=== PATIENT | female | born 1940 | race Caucasian/White ===

== ENCOUNTER → 2018-08-13 12:21 | Outpatient (CLI) | payer MEDICARE, OTHER, SELFPAY ==
--- NOTE | 2018-08-13 | DI.MRI.S_ITS ---
PROCEDURE: MR KNEE RT WO CON INDICATIONS: UNILATERAL PRIMARY OSTEOARTHRITIS OF RIGHT KNEE TECHNIQUE: Noncontrast sagittal PD fast spin echo and T2 fast spin echo with fat saturation, sagittal 3-D FLASH with fat saturation; coronal T1 spin echo and PD fast spin echo with fat saturation, and axial PD fast spin echo with fat saturation through the knee. COMPARISON: [facility], CR, XR KNEE ARTHRITIC SERIES BI, 06/16/2018, 10:20. FINDINGS: Image quality: Excellent. Menisci: Medial extrusion and attachment of the medial meniscus is present. Amorphous high signal intensity within the anterior horn, body, and posterior horn of the lateral meniscus is present, demonstrating superior and inferior articular surface extension, indicating severe degenerative tearing. Radial tearing of the posterior horn medial meniscus is present. Amorphous high signal intensity within the anterior horn lateral meniscus is present, demonstrating inferior to the surface extension, indicating degenerative tearing. Cruciate ligaments: The posterior cruciate ligament is intact. There is moderate signal loss involving the anterior cruciate ligament. Medial structures: The medial collateral ligament appears intact. Mild T2 signal elevation within the tibial insertion of the semimembranosus. Visualized portions of the pes anserinus tendons appear normal. No abnormal bursal fluid. Lateral structures: The lateral collateral ligament demonstrate mild T2 signal elevation at its femoral insertion site. The long and short heads of the biceps femoris tendon appear intact. The popliteus tendon appears normal. Iliotibial band appears normal. Anterior structures: The quadriceps and patellar tendons appear intact. Moderate lateral patellar subluxation. No femoral trochlear dysplasia or ventral trochlear prominence. There is mild edema in the superolateral aspect of the infrapatellar fat pad. Moderate prepatellar subcutaneous edema. Bones and cartilage: No bone marrow contusions or fractures. Severe tricompartmental periarticular osteophyte formation. Severe diffuse articular cartilage loss overlies the weightbearing aspects of the medial femoral condyle and medial tibial plateau. There is mild ill-defined underline degenerative marrow edema within the weightbearing aspects of the medial femoral condyle and medial tibial plateau. Severe articular cartilage loss overlies the patellar apex, lateral patellar facet, a and lateral femoral trochlea. Moderate marrow edema and intraosseous ganglia within the subchondral aspects of the lateral patellar facet and lateral femoral trochlea. Joint space: There is a small knee joint effusion and a trace Rosario's cyst. There are a few small intra-articular loose bodies, largest of which is in the mid anterior compartment measuring 11 mm. Normal appearing synovial plicae are incidentally noted. IMPRESSION: 1. Tricompartmental osteoarthritis with associated articular cartilage loss. 2. Findings consistent with lateral patellofemoral friction syndrome in a perfect clinical setting, with associated patellofemoral compartment cartilage loss. 3. Partial thickness anterior cruciate ligament tear. 4. Medial and lateral meniscal tearing. 5. Insertional tendinitis of the semimembranosus. 6. Partial-thickness lateral collateral ligament tear. 7. Prepatellar bursitis. Dictated by: Yanick Lema M.D. on 08/13/2018 at 14:51 Approved by: Yanick Lema M.D. on 08/13/2018 at 14:57
== END ==
PROVIDERS: Family Provider Family Medicine; PCP Family Medicine; Visit Provider Orthopaedic Surgery
DX: S83.511A Sprain of anterior cruciate ligament of right knee, initial encounter (principal); S83.421A Sprain of lateral collateral ligament of right knee, initial encounter; M17.11 Unilateral primary osteoarthritis, right knee; M23.241 Derangement of anterior horn of lateral meniscus due to old tear or injury, right knee; M23.251 Derangement of posterior horn of lateral meniscus due to old tear or injury, right knee; M23.221 Derangement of posterior horn of medial meniscus due to old tear or injury, right knee; M76.891 Other specified enthesopathies of right lower limb, excluding foot; M70.41 Prepatellar bursitis, right knee
CPT/HCPCS: 73721

== ENCOUNTER → 2018-09-03 14:42 | Outpatient (CLI) | payer MEDICARE, OTHER, SELFPAY ==
--- NOTE | 2018-09-03 | DI.ECHO.S_ITS ---
[facility] +---------+ : : [address] : : : : [id number] : : : : Phone: [phone]+ Echocardiogram Report + + :Name: GM AMADOR Study Date: 09/03/2018 Height: 62 in : :[facility] Weight: 219 lb : : Gender: Female BSA: 2.0 m2 : :: 1940 Age: 78 yrs BP: 152/82 mmHg: :Reason For Study: Murmur : : Performed By: Edie Davila : :Referring: DIYA JONAS : + + Interpretation Summary 1) Normal left ventricular thickness, size, wall motion, and systolic function (EF 60-65%). 2) Grossly, normal right ventricular size and function. 3) Aortic valve has mild sclerosis but no stenosis is present. Mild aortic regurgitation present. 4) No prior echo available for comparison. Procedure: A two-dimensional transthoracic echocardiogram with color flow and Doppler was performed. The study quality was technically adequate. There is no prior echocardiogram noted for this patient. The patient was in normal sinus rhythm during the exam. Left Ventricle: The left ventricle is normal in size, wall thickness, and systolic function without any focal wall motion abnormalities. The ejection fraction is estimated to be 60-65%. Diastolic parameters suggest probable normal left ventricular diastolic function and normal filling pressures. Right Ventricle: The right ventricle grossly appears normal in size with probable normal systolic function. Atria: The left atrium is mildly dilated. Right atrial size is normal. The interatrial septum is intact with no evidence for an atrial septal defect. Mitral Valve: The mitral valve is grossly normal. There is no mitral regurgitation noted. Aortic Valve: The aortic valve opens well. The aortic valve is trileaflet. There is mild aortic valve sclerosis. There is no aortic valve stenosis. There is mild aortic regurgitation. Tricuspid Valve: The tricuspid valve is normal in structure and function. There is a trace or physiologic amount of tricuspid regurgitation. The right ventricular systolic pressure is estimated to be at least 23 mmHg based on an estimated right atrial pressure of 3 mm Hg. Pulmonic Valve: The pulmonic valve is not well visualized. There is trace pulmonic regurgitation. Great Vessels: The aortic root is normal size. The ascending aorta is at the upper limits of normal in size. The IVC is of normal diameter and collapses greater than 50% with a sniff. This suggests a low right atrial pressure of 3 mm Hg. Pericardium/ Pleura There is no pericardial effusion. There is no pleural effusion. MMode/2D Measurements & Calculations LVIDd: 4.5 cm Ao root diam: 3.4 cm LVIDs: 2.5 cm Aortic Jxn: 3.0 cm FS: 44.0 % asc Aorta Diam: 3.8 cm EPSS: 0.47 cm Ao Arch Diam (Prox Trans): 2.8 cm IVSd: 0.76 cm LVPWd: 0.87 cm LV cruz. diameter/BSA (cm/m^2): 2.3 LV sys. diameter/BSA (cm/m^2): 1.3 LA dimension: 3.6 cm RA long axis: 4.7 cm LA A2 area: 19.6 cm2 RA area: 16.1 cm2 LA A4 area: 20.9 cm2 RA vol: 47.4 ml LA length (vol): 5.3 cm RA : 23.9 ml/m2 LA vol: 65.2 ml IVC diam: 1.8 cm LA vol index: 32.8 ml/m2 RVDd major: 5.6 cm RVD1 (basal): 3.3 cm RVD2 (mid): 2.4 cm Doppler Measurements & Calculations Ao V2 max: 218.7 cm/sec AI P1/2t: 522.7 msec Ao V2 mean: 140.2 cm/sec AI dec slope: 261.4 cm/sec2 Ao max P.1 mmHg Ao mean P.2 mmHg Ao V2 VTI: 44.3 cm MV E max spencer: 95.2 cm/sec TR max spencer: 225.3 cm/sec MV A max spencer: 96.0 cm/sec TR max P.3 mmHg MV E/A: 0.99 PA V2 max: 110.3 cm/sec Med Peak E' Spencer: 7.6 cm/sec PA V2 mean: 71.2 cm/sec E/E' med: 12.6 PA mean P.5 mmHg Lat Peak E' Spencer: 9.4 cm/sec PA Accel Time: 0.08 sec E/E' lat: 10.2 E/e' average: 11.4 MV dec time: 0.23 sec Reading Physician:06:25 PM
== END ==
PROVIDERS: PCP Family Medicine; Visit Provider Family Medicine
DX: I35.1 Nonrheumatic aortic (valve) insufficiency (principal); R01.1 Cardiac murmur, unspecified
CPT/HCPCS: 93306

== ENCOUNTER 2018-09-28 06:06 | Inpatient (IN) | payer MEDICARE, OTHER, SELFPAY ==
[2018-09-15 10:00] VITALS: BMI 40.4
[2018-09-28] VITALS (15 sets, daily range): BP systolic 87–133; BP diastolic 46–67; PULSE 62–78; RESP 14–20; TEMP 36.3–37.3; O2SAT 92–98; BMI 40.4
--- NOTE | 2018-09-28 06:00 | DI.RAD.S_ITS ---
PROCEDURE: XR KNEE RT 1TO2V INDICATIONS: Postop right total knee TECHNIQUE: 2 view(s) of the knee acquired. COMPARISON: [facility], , KNEE 1-2 VIEWS LEFT, 10/20/2012, 12:37. FINDINGS: Bones: Patient is status post knee joint arthroplasty. Hardware components are in expected positions. Visualized bony structures are intact. Soft tissues: Overlying postoperative changes are noted. IMPRESSION: Normal alignment after right total knee arthroplasty. A surgical drain overlies the operative bed. Dictated by: Jamin Vazquez M.D. on 09/28/2018 at 10:59 Approved by: Jamin Vazquez M.D. on 09/28/2018 at 11:00
[2018-09-28] MEDS: LACTATED RINGERS 1,000 ML 42 ML IV (07:00)
[2018-09-28] MEDS: VANCOMYCIN 1,000 MG/200 ML FROZ.PIGGY 200 MG IV (07:05)
[2018-09-28] MEDS: PREGABALIN 75 MG CAPSULE PO (07:08)
[2018-09-28] MEDS: ACETAMINOPHEN 325 MG TABLET 975 MG PO ×3 (07:08→21:35)
[2018-09-28] MEDS: CELECOXIB 200 MG CAPSULE PO (07:08)
--- NOTE | 2018-09-28 07:09 | PC.NURSE ---
Day shift: Not on this AC unit at this time.
--- NOTE | 2018-09-28 07:47 | PM.PREOP ---
Pre-operative Note Interval Note History & Physical reviewed/Exam performed by Physician: Yes Changes to H&P: No
--- NOTE | 2018-09-28 07:48 | PM.OP.1 ---
Operative Date/Time/Diagnoses Date of procedure: 09/28/18 Time of procedure: 07:48 Pre-op diagnosis: right knee OA Post-op diagnosis: same Procedure & Clinicians Procedure: right total knee replacement Same procedure as scheduled: Yes Indications: The patient has had progressively worsening right knee pain with radiographic changes consistent with arthritis. Non-operative management has failed and the patient has requested total knee replacement. The risks, benefits and alternatives to surgery were discussed with the patient prior to proceeding. Risks discussed included, but were not limited to, failure to relieve pain, stiffness, infection, nerve damage, deep venous thrombosis, pulmonary embolism, stroke, coma, heart attack, permanent paralysis and , as well as the potential need for eventual revision of the prosthetic. Surgeon: Padmiin Shirley Applications Support Engineer: Carlyn Casanova Anesthesia Type: Spinal Operative Notes Findings: Severe right knee osteoarthritis, good stability Closure Type: primary Specimen(s): none sent Implants & Drains: Shirley and Nephew Nelsonney BCS2 size 5 femur, size 4 tibia, +9 poly, 32 by 7.5 patella Applied: drain(s) Estimated Blood Loss (mL): 250 Blood products transfused: none Tourniquet time (min): 81 Procedure in detail: The patient was seen in the pre-operative area, where the patient identified the right knee as the operative site and this was marked with my initials. The patient received pre-operative antibiotics, and was taken to the operating room and placed on the operative table in the supine position. After satisfactory anesthesia, a realtime reporter out was performed. The right leg was encircled with a tourniquet about the proximal thigh, and the leg was prepared from the toes to the tourniquet with ChloroPrep in the usual fashion and draped through sterile drapes. The leg was elevated and exsanguinated with Eschmark bandage and the tourniquet inflated to [250] mmHg pressure. The knee was approached through an approximately 18 cm incision centered over the patella and carried into the knee through a medial parapatellar arthrotomy. A portion of the medial and lateral meniscus was resected. Soft tissue was carefully mobilized around the patella the patella was measured with a caliper. Bone was resected from the patella and the patellar height was reconstituted with up an appropriate sized patellar component. A cover was then placed on the patella. A small amount of additional medial and lateral meniscus was resected. The visionare guide fit well to the distal femur. It looked like an appropriate distal femoral cut and the cut was made without difficulty. The rotation was assessed and the appropriate size femoral guide was placed on the distal femur and finishing cuts were made. There was no evidence of notching. The anterior, posterior and chamfer cuts were then made. The posterior osteophytes and soft tissues were then removed. The posterior capsule was injected with part of a mixture of 60 ml 0.25% Marcaine mixed with 20 ml Exparel for post operative pain control. The remainder of this mixture was injected into the capsule and subcutaneous tissues during cement curing. The tibia was prepared and the visionaire guide fit well to the distal tibia. The rotation was assessed. The patient was placed in extension residual medial and lateral meniscus as well as any residual bone was carefully resected. [No] additional tibia was resected. Hemostasis was achieved especially posteriorly. Additional local was injected into the posterior capsule. The extension gap was assessed and additional releases for gap balancing were performed as necessary. It was checked with the gap sales representative printing. The femoral component was trial was placed and the notch was finished. Trial tibial and femoral components were then placed and the knee placed through a range of motion. Range of motion was [0-130], with good stability throughout the range. The trials were then removed, and the tibia was finished. The bone was prepared with pulsatile lavage, and dried with a sponge. Cement was applied and the final prosthetics placed. Excess cement was removed during and after cement curing. A brief Betadine soak was performed. After confirming there was no extruded cement posteriorly, the final tibial insert was placed. The knee was copiously irrigated and the tourniquet deflated. Hemostasis was obtained with the bovie. A drain was placed and brought out superolaterally. The capsule was closed with interrupted suture. The subcutaneous layer was closed with barbed sutures, and the skin with a running 3-0 V-Lock suture and Surgical glue. An Aquacel Ag dressing was applied and the patient was taken to recovery having tolerated the procedure well. Complications: none Condition: stable Disposition: Acute Care Plan for aftercare: The patient will be maintained on a standard total knee replacement protocol with weight bearing as tolerated. The patient will receive Lovenox and sequential compression devices for DVT prophylaxis. The patient will be discharged home when safe for the home environment.
[2018-09-28] MEDS: CEFAZOLIN 2 GM/100 ML FROZ.PIGGY IV ×3 (07:52→23:37)
--- NOTE | 2018-09-28 08:25 | SUR.OPER ---
Supine on padded OR bed. Pillow under head, arms secured on padded armboards <90 degree abduction. Safety belt across torso. Non-operative leg secured with tape over blanket over lower leg. Operative leg secured in DeMayo positioner. Foam padded brace at thigh of operative leg.
[2018-09-28] MEDS: BUPIVACAINE LIPOSOME 266 MG/20 ML VIAL INJ (08:31)
[2018-09-28] MEDS: BUPIVACAINE 0.25% W/ EPI VIAL 50 ML INJ (08:31)
[2018-09-28] MEDS: POVIDONE-IODINE 15 ML, SODIUM CHLORIDE 0.9% 250 ML TOP (09:51)
[2018-09-28] MEDS: LACTATED RINGERS 1,000 ML 125 ML IV ×2 (11:37→20:17)
--- NOTE | 2018-09-28 12:24 | PC.NURSE ---
Day shift: Arrived on unit at approx 1145 from PACU. Oriented to room and call light. Denies pain or nausea. Agrees to not get OOB w/o help from staff. Tolerating PO liquids. Spouse in room for support. Call light in reach.
--- NOTE | 2018-09-28 13:55 | PT.IIE ---
Current Diagnoses Unilateral primary osteoarthritis, right knee (09/28/18) Surgery Performed Operation Date: 09/28/18 07:45 Actual Procedures p Total Knee Arthroplasty(Right) - Padmini Shirley MD Surgical History (Last Updated 09/15/18 @ 10:11 by Arline Shrestha RN) H/O dilation and curettage (Acute) History of arthroplasty of left knee (Acute ~10/2012) Medical History (Last Updated 09/15/18 @ 10:11 by Arline Shrestha RN) Easy bruisability (Acute) HTN (hypertension) (Acute) Hyperlipidemia (Acute) Osteoarthritis (Acute) Physical Therapy Inpatient Evaluation/Re-Eval M1 PT/OT-IP Prior Functional Status Start: 09/28/18 14:57 Freq: NEEDED Status: Active Protocol: Document 09/28/18 13:55 AB (Rec: 09/28/18 15:11 AB [id number]) Medical Review Prior Functional Status Medical History Reviewed Yes Communication able to make needs known Mobility and Gait stated that she is indpeendent with all mobilities and ambulation without AD but occasionally furniture cruises . Social History Household Members spouse Living Arrangements House Number of Floors (Floors) 3 or More Floors Number of Stairs To Enter/Railing? pt has 2 steps to enter from the front door without rails; from the garage 2 steps without rails; has not steps to get to rec room level where pt plans to stay mainly but is ~ 40-50 ft away from the garage. pt prefers to get in through the front door. if entering from the front door, pt has 5 steps down to rec room level without rails but stated that she has kirkpatrick on bother sides. Home Environment High Toilet Walk in Shower Home Equipment Front Wheel Walker Straight Cane Shower Seat with Backrest Hand Held Shower Employment Status Retired M2 PT-IP Current Condition Start: 09/28/18 14:57 Freq: NEEDED Status: Active Protocol: Document 09/28/18 13:55 AB (Rec: 09/28/18 15:11 AB [id number]) Physical Therapy Current Condition Current Condition Evaluation Date 09/28/18 Treatment Diagnosis s/p R TKA; difficulty in walking Onset Date 09/28/18 Weight Bearing Status Weight Bearing Status Weight Bear as Tolerated M3 PT-IP Subjective Start: 09/28/18 14:57 Freq: NEEDED Status: Active Protocol: Document 09/28/18 13:55 AB (Rec: 09/28/18 15:11 AB [id number]) Subjective Physical Therapy Visit Type Type Initial Evaluation Visit Start Time 13:55 Visit Stop Time 14:40 Total Visit Minutes 45 Number of WINE BLENDER Visits 0 Physical Therapy Visit Comments Patient Comments pt agreeable to do PT Therapy Pain Assessment Pain Present Pain Present Denied Pain M4 PT-IP Mobility and Gait Start: 09/28/18 14:57 Freq: NEEDED Status: Active Protocol: Document 09/28/18 13:55 AB (Rec: 09/28/18 15:11 AB [id number]) PT-Bed Mobility Assessment Supine to Sit Supine to Sit Standby Assistance Sit to Supine Sit to Supine Standby Assistance Scooting Scooting Up and Down in Bed Standby Assistance PT-Transfer Assessment Equipment Transfer Assistive Device Gait Belt Front Wheeled Walker Orthotic/Prosthetic Devices or Brace: No Transfers Transfer Destination Toilet Transfer Technique pt ambulated to the toilet using FWW Transfer Ability Level of Assist Contact Guard Assistance Comments Mobility Comments pt ambulated to the toilet using FWW CGA ~ 12 ft. completed sit to stand using grab bars from the toilet min A and cues and ambulated back to bed as requested. Gait Assessment Gait Gait Assistance Required: Contact Guard Assist Distance (Feet) 12 Able to Maintain Weight Bearing Status Yes During Gait Assistive Devices Assistive Device Gait Belt Front Wheeled Walker Orthotic/Prosthetic Devices or Brace: No Gait Deviations General Gait Pattern Antalgic Decreased Stride Length Decreased Feet Clearance Factors Limiting Gait Function Factors Limiting Gait Function Decreased Activity Tolerance Decreased Strength Limited Range of Motion Pain Poor Balance Comments Gait Comments pt ambulated to the toilet ~ 12ft using FWW CGA and back to bed ~1 2 ft again CGA using FWW. PT-Balance Assessment Sitting Balance and Reactions Static Sitting Balance Ability Good Dynamic Sitting Balance Ability Good Standing Balance and Reactions Static Standing Balance Ability Fair Dynamic Standing Balance Ability Fair Device Used FWW M5 PT-IP Objective Assessments Start: 09/28/18 14:57 Freq: NEEDED Status: Active Protocol: Document 09/28/18 13:55 AB (Rec: 09/28/18 15:11 AB [id number]) Orientation Orientation/Cognition Level of Alertness Alert Orientation Name Age Birthday Month Date Year Day of Week Place Situation Safety Awareness Understands Safety Issues Memory Description No Deficits Noted Gross Range of Motion Lower Extremity ROM Assessment Right Impaired Strength Lower Extremity Strength Assessment Right Impaired Knee 3+/5 Sensation Assessment Sensation Gross Sensation WNL Muscle Tone Muscle Tone WNL Yes M6 PT-IP Treatment Start: 09/28/18 14:57 Freq: NEEDED Status: Active Protocol: Document 09/28/18 13:55 AB (Rec: 09/28/18 15:11 AB [id number]) Physical Therapy Treatment Education Education Provided Precautions Weight Bearing Status Post-Op Packet Safety M7 PT-IP Assessment and Plan Start: 09/28/18 14:57 Freq: NEEDED Status: Active Protocol: Document 09/28/18 13:55 AB (Rec: 09/28/18 15:11 AB [id number]) PT Summary Assessment and Plan Potential Rehabilitation Potential Good Status of Condition at Evaluation Stable Summary Impairments Pain ROM Strength Balance Coordination Sensation Bed Mobility Transfers Gait Activity Tolerance Assessment Summary pt requiring CGA with mobility and will likely progress during hospital stay. will complete stair climbing prior to d/c home. pt plans to go home with spouse to assist her and stated that she is set up for outpt PT. Goals Bed Mobility Goal Independent Transfer Goal Independent Front Wheeled Walker Gait Goal Standby Assistance Front Wheel Walker Gait Distance 150 Other Goals up/down 2 steps without rails using FWW/SPC CGA; up/down 5 steps without rails using FWW/SPC CGA Days to Meet Goals 3 Frequency of Treatment Frequency Of Treatment Twice a Day Treatment Plan Physical Therapy Treatment Plan Bed Mobility Training Transfer Training Gait Training Therapeutic Exercise Balance Retraining Post Op Education Discharge Planning Hot or Cold Pack Neuromuscular Re-ed Coordination Retraining Manual Therapy Other Recommendations and Next Treatment ambulation, stair climbing Focus Recommendations To Nursing Amount of Assist Needed 1 Person Assist Discharge Recommendations PT Discharge Recommendations Home with Assistance Outpatient PT
[2018-09-28] MEDS: ASPIRIN EC 81 MG TABLET PO (21:34)
[2018-09-28] MEDS: DOCUSATE 100 MG CAPSULE PO (21:34)
[2018-09-28] MEDS: SIMVASTATIN 20 MG TABLET PO (21:35)
--- NOTE | 2018-09-28 22:37 | PC.NURSE ---
1500- assumed care of pt from outgoing shift. Pt awake and alert. pt states she doesn't feel like she has to void yet. Pt uses call light and cooperates with staff. pt later in the shift felt that she had to void, only went 150 cc. bladder scan showed roughly 530 cc. straight cath completed and about 400 drained. Pt tolerate well. md in to see pt and told her to sit in chair for a bit. pt did. around 930 pt had evening meds and went back to bed. Pt uses call light. bed alarm on. will continue to monitor pt for safety.
--- NOTE | 2018-09-28 23:58 | PC.NURSE ---
Addendum entered by Nyla Abreu R.N. 09/29/18 06:13: Has been up to bathroom several times tonight and voiding without difficulty. Did have some urinary urgency this morning and dribbled while walking to bathroom. CMS remains intact and continues to deny pain. Original Note: Patient is alert and oriented. Breath sounds CTA with RA sat of 95%. HRR. Denies nausea. BT present and passing flatus. Up to bathroom with walker and SBA and able to void 100cc + unmeasured (some of urine missed measuring device); urine is pale yellow. Independent with bed mobility. Dressing/benson to right knee is CDI. Hemovac is compressed and intact with sanguinous drainage noted. CMS + although pulses weak. Denies feeling weak or unsteady when up and has good ROM with right knee. Fall risk score is high and bed alarm is activated; patient refuses to wear a yellow gown. Denies any pain. Wearing bilateral SCD's.
[2018-09-29 05:08] VITALS: BP 135/77; PULSE 67; RESP 18; TEMP 35.7; O2SAT 99
[2018-09-29 06:31] LABS: Hematocrit 37.5 % (36-46); Hemoglobin 12.2 g/dL (12.0-16.0)
--- NOTE | 2018-09-29 07:51 | P.DS_ITS ---
History of Present Illness Date Patient Seen: 09/29/18 Time Patient Seen: 07:47 Chief complaint: right total knee arthroplasty [id number] Narrative: Patient's pain is mild. She has been able to get up and use the restroom several times last night and this morning. Denies fever chills. No nausea vomiting. Patient's is home to assist her. She states she has 2 steps into the front of her house however she could walk around to the back to get and the house without steps. She does feel ready to go home today. Discharge Providers Date of admission: 09/28/18 06:06 Primary care physician: Gio Peraza MD Consults: 09/28/18 06:00 Consult to Anesthesiology Routine Comment: Consulting Provider: Anesthesiologist Reason for consultation: Regional block for post operative pain control 09/28/18 11:02 Consult to Discharge Planning Routine Comment: Consult to Physical Therapy Evaluate & Treat Comment: oob today Physician Instructions: postop TKA protocol Consult to Respiratory Therapy Evaluate & Treat Comment: Physician Instructions: Evaluate and treat Discharge provider: Delfino Garcia PA-C Discharge Date: 09/29/18 Summary Discharge Diagnosis: Status post right total knee arthroplasty Hospital Course: The patient has had progressively worsening right knee pain with radiographic changes consistent with arthritis. Non-operative management has failed and the patient has requested total knee replacement. The risks, benefits and alternatives to surgery were discussed with the patient prior to proceeding. Risks discussed included, but were not limited to, failure to relieve pain, stiffness, infection, nerve damage, deep venous thrombosis, pulmonary embolism, stroke, coma, heart attack, permanent paralysis and , as well as the potential need for eventual revision of the prosthetic. Surgeon: Padmini Shirley Grounds And Nursery Specialist: Carlyn Casanova Anesthesia Type: Spinal Patient taken to the operating room underwent right total knee arthroplasty. Patient back in her room recovering well as in stable condition. Status at Discharge Functional status at discharge: uses cane/walker Overall status at discharge: patient is progressing back to baseline Time Spent with Patient Less than 30 minutes Exam Vital Signs (past 8 hours): - 09/29/18 05:08 Temperature 96.3 F L Pulse Rate 67 Respiratory Rate 18 Blood Pressure 135/77 Pulse Oximetry 99 Oxygen Delivery Method Room Air Oxygen Flow Rate 0 Narrative Exam Narrative: Pleasant 78-year-old female resting comfortably in bed in no apparent distress. Right knee dressing is clean, dry and intact. Hemovac drain is in place. Neurovascular status is intact to the distal right lower extremity. Objective Labs Result Diagrams: 09/29/18 06:06 Labs: Laboratory Results - last 24 hr 09/29/18 06:06 Hgb 12.2 Hct 37.5 Discharge Plan Discharge Plan Patient Disposition: Home Discharge comment: DC home today after PT Discharge Med Rec/Prescriptions Prescriptions: New oxycodone 5 mg Tablet 5 mg PO Q3HR PRN (Reason: Pain, Moderate (4-6)) Qty: 40 RF: 0 hydroxyzine pamoate [Vistaril] 25 mg capsule 25 mg PO QID PRN (Reason: nausea and vomiting) Qty: 30 RF: 0 meloxicam [Mobic] 7.5 mg tablet 7.5 mg PO DAILY Qty: 30 RF: 0 Continue lisinopril 10 MG tablet 10 mg PO QDAY Qty: 0 RF: 0 hydrochlorothiazide 25 MG tablet 25 mg PO QDAY Qty: 0 RF: 0 simvastatin 20 MG tablet 20 mg PO BEDTIME Qty: 0 RF: 0 CA PANTOTHENATE/FOLIC ACID/VIT (MULTIVITAMIN) 1 tab PO QDAY Qty: 0 RF: 0 Vitamin E (VITAMIN E) 400 units PO QDAY Qty: 0 RF: 0 CALCIUM CARBONATE (Calcium) 600 mg PO AMCC Qty: 0 RF: 0 Discontinued aspirin 81 MG tablet,delayed release (DR/EC) 81 mg PO QDAY Qty: 0 RF: 0 Follow up/Referrals: Padmini Shirley MD [Physician] - (follow up 7 days) Provider Discharge Instructions Diet: Diet as Tolerated Activity: WBAT Cold/Heat Therapy: ice as needed Other treatments: Aspirin 81 mg b.i.d., Tylenol 1000 mg Q 8 hr, Mobic 1 tab daily, Vistaril as needed nausea and muscle spasms, oxycodone as needed pain Skin/Wound/Dressing Care Report to your healthcare provider any signs of infection, such as:: chills, fever, increased pain, unusual drainage and unusual redness Dressing: keep dressing clean and dry Discharge Data Primary Care Provider: Gio Peraza Attending Provider: Padmini Shirley Admit Date/Time: 09/28/18 06:06
[2018-09-29] MEDS: OXYCODONE IR 5 MG TABLET PO (08:23)
[2018-09-29] MEDS: ACETAMINOPHEN 325 MG TABLET 975 MG PO (08:24)
[2018-09-29] MEDS: ASPIRIN EC 81 MG TABLET PO (08:24)
[2018-09-29] MEDS: LISINOPRIL 10 MG TABLET PO (08:24)
[2018-09-29] MEDS: DOCUSATE 100 MG CAPSULE PO (08:24)
[2018-09-29] MEDS: hydroCHLOROthiazide 25 MG TABLET PO (08:24)
[2018-09-29 09:00] VITALS: BP 113/61; PULSE 62; RESP 18; TEMP 36.3; O2SAT 98
--- NOTE | 2018-09-29 11:39 | PT.IPTN ---
Current Diagnoses Unilateral primary osteoarthritis, right knee (09/28/18) Surgery Performed Operation Date: 09/28/18 07:45 Actual Procedures p Total Knee Arthroplasty(Right) - Padmini Shirley MD Physical Therapy Treatment Note M2 PT-IP Current Condition Start: 09/28/18 14:57 Freq: NEEDED Status: Active Protocol: Document 09/28/18 13:55 AB (Rec: 09/28/18 15:11 AB [id number]) Physical Therapy Current Condition Current Condition Evaluation Date 09/28/18 Treatment Diagnosis s/p R TKA; difficulty in walking Onset Date 09/28/18 Weight Bearing Status Weight Bearing Status Weight Bear as Tolerated M3 PT-IP Subjective Start: 09/28/18 14:57 Freq: NEEDED Status: Active Protocol: Document 09/29/18 11:30 SA (Rec: 09/29/18 11:39 SA [id number]) Subjective Physical Therapy Visit Type Type Treatment Note Visit Start Time 09:40 Visit Stop Time 10:10 Total Visit Minutes 30 Number of CREPE SOLE WIRE BRUSHER Visits 1 Physical Therapy Visit Comments Patient Comments Pt agreeable to try stairs, rates knee pain as minimial, maybe a 2/10. Therapy Pain Assessment Pain When Pain Assessed During Mobility Pain Present Pain Present Pain Reported Location right knee Intensity 2 Scale Used Numeric (1 - 10) Pain Management Techniques Apply Cold Timing of Activity with Medications M4 PT-IP Mobility and Gait Start: 09/28/18 14:57 Freq: NEEDED Status: Active Protocol: Document 09/29/18 11:30 SA (Rec: 09/29/18 11:39 SA [id number]) PT-Bed Mobility Assessment Rolling Type of Rolling Roll to Right Level of Assist Standby Assistance Supine to Sit Supine to Sit Standby Assistance Sit to Supine Sit to Supine Standby Assistance Scooting Scooting to Edge of Bed Standby Assistance Scooting Up and Down in Bed Standby Assistance PT-Transfer Assessment Sit to and From Stand Sit to and from Stand Standby Assistance Equipment Transfer Assistive Device Gait Belt Front Wheeled Walker Orthotic/Prosthetic Devices or Brace: No Transfers Transfer Destination Chair Toilet Transfer Technique Stand Step Pivot Transfer Ability Level of Assist Standby Assistance Comments Mobility Comments Pt SBA with mobility tasks, demonstrates good safety awareness and safe use of FWW. Reports very limited pain with mobility and demonstrates significant WBing through RLE. Gait Assessment Gait Gait Assistance Required: Contact Guard Assist Distance (Feet) 150 Able to Maintain Weight Bearing Status Yes During Gait Assistive Devices Assistive Device Gait Belt Front Wheeled Walker Orthotic/Prosthetic Devices or Brace: No Gait Deviations General Gait Pattern Antalgic Decreased Stride Length Decreased Feet Clearance Factors Limiting Gait Function Factors Limiting Gait Function Decreased Activity Tolerance Decreased Strength Limited Range of Motion Pain Poor Balance Comments Gait Comments Gait training in halls with FWW and CGA-SBA and min cues for upright posture and, pt taking even step lengths and demonstrates safe use of FWW. Stair Climbing Assessment Evaluation Level of Assist On Stairs Contact Guard Assistance Devices Stair Climbing Assistive Devices Left Railing Right Railing Technique/Endurance Stair Climbing Direction Ascend and Descend Stair Climbing Technique Step to Step Number of Steps Climbed 3 Query Text: Stair Climbing Set # Repetitions (reps) 2 Comments Stair Climbing Comments Pt used B rails for first rep and completed 2nd rep with single rail on L ascending which is her set up at home. PT demonstrated safe ability to ascend/descend stairs with Min verbal cues for technique. M5 PT-IP Objective Assessments Start: 09/28/18 14:57 Freq: NEEDED Status: Active Protocol: Document 09/28/18 13:55 AB (Rec: 09/28/18 15:11 AB [id number]) Orientation Orientation/Cognition Level of Alertness Alert Orientation Name Age Birthday Month Date Year Day of Week Place Situation Safety Awareness Understands Safety Issues Memory Description No Deficits Noted Gross Range of Motion Lower Extremity ROM Assessment Right Impaired Strength Lower Extremity Strength Assessment Right Impaired Knee 3+/5 Sensation Assessment Sensation Gross Sensation WNL Muscle Tone Muscle Tone WNL Yes M6 PT-IP Treatment Start: 09/28/18 14:57 Freq: NEEDED Status: Active Protocol: Document 09/29/18 11:30 SA (Rec: 09/29/18 11:39 SA [id number]) Physical Therapy Treatment Exercises Exercises Ankle Pumps Quad Sets Seated Knee Flexion/Extension Education Education Provided Precautions Weight Bearing Status Post-Op Packet Safety M7 PT-IP Assessment and Plan Start: 09/28/18 14:57 Freq: NEEDED Status: Active Protocol: Document 09/29/18 11:30 SA (Rec: 09/29/18 11:39 SA [id number]) PT Summary Assessment and Plan Potential Rehabilitation Potential Good Status of Condition at Evaluation Stable Summary Progress Towards Goals Progressing Toward Goals Assessment Summary Pt demonstrates safe ambulation with FWW and ability to ascend/descend stairs with CGA and step to gait pattern. Pt has at home to help and plans to cont with OP PT with appointments already set up. Plan to d/c this afternoon. Frequency of Treatment Frequency Of Treatment Twice a Day Recommendations To Nursing Amount of Assist Needed 1 Person Assist Discharge Recommendations PT Discharge Recommendations Home with Assistance Outpatient PT Equipment Needed for Home Before has FWW and SPC Discharge
== END 2018-09-29 11:50 | disposition home or self-care (01) | DRG 470 ==
PROVIDERS: Admitting Provider Orthopaedic Surgery; PCP Family Medicine; Visit Provider Orthopaedic Surgery
PROC: 0SRC0JZ Replacement of Right Knee Joint with Synthetic Substitute, Open Approach (ICD-10-PCS; CPT 27447; principal; 2018-09-28 07:45)
DX: M17.11 Unilateral primary osteoarthritis, right knee (principal); Z96.652 Presence of left artificial knee joint; I10 Essential (primary) hypertension; E78.5 Hyperlipidemia, unspecified; Z87.891 Personal history of nicotine dependence
CPT/HCPCS: 36415; 73560; 85014; 85018; 94762; 97116; 97161; 97530; C1776; C9290; J0690; J1100; J2250; J2274; J2405; J2704; J3010; J3370

== ENCOUNTER → 2020-08-29 12:12 | Outpatient (CLI) | payer MEDICARE, OTHER, SELFPAY ==
[2018-09-28 11:39] VITALS: BMI 40.4
--- NOTE | 2020-08-29 | DI.RAD.S_ITS ---
PROCEDURE: XR SHOULDER RT MIN 2V INDICATIONS: right shoulder pain TECHNIQUE: 3 views of the shoulder were acquired. COMPARISON: None. FINDINGS: Bones: No fractures or dislocations. No suspicious bony lesions. Visualized ribs appear intact. Severe right shoulder joint degeneration. Soft tissues: No suspicious soft tissue calcifications. IMPRESSION: Severe right shoulder joint degeneration Dictated by: Wally Hook M.D. on 08/29/2020 at 13:18 Approved by: Wally Hook M.D. on 08/29/2020 at 13:19
== END ==
PROVIDERS: PCP Family Medicine; Referring Provider Family Medicine; Visit Provider Family Medicine
DX: M25.511 Pain in right shoulder (principal); M19.011 Primary osteoarthritis, right shoulder
CPT/HCPCS: 73030

== ENCOUNTER → 2023-07-10 12:16 | Outpatient (CLI) | payer MEDICARE, OTHER, SELFPAY ==
[2018-09-28 11:39] VITALS: BMI 40.4
--- NOTE | 2023-07-10 | DI.RAD.S_ITS ---
PROCEDURE: XR HIP W PEL IF DONE LT 2V INDICATIONS: PAIN TECHNIQUE: AP pelvis with lateral view(s) of the left hip(s). COMPARISON: None. FINDINGS: Bones: No fractures or dislocations. Moderate degenerative changes of the left hip and mild of the right. Degenerative changes of the visualized lower lumbar spine and pubic symphysis. Pelvic ring appears intact. No suspicious bony lesions. Soft tissues: The visualized bowel gas pattern is normal. No suspicious soft tissue calcifications. IMPRESSION: Moderate degenerative changes of the left hip and mild degenerative changes of the right hip. Dictated by: Timothy Estrada M.D. on 07/10/2023 at 14:20 Approved by: Timothy Estrada M.D. on 07/10/2023 at 14:21
== END ==
PROVIDERS: PCP Family Medicine; Referring Provider Family Medicine; Visit Provider Family Medicine
DX: M25.552 Pain in left hip (principal)
CPT/HCPCS: 73502

== ENCOUNTER → 2024-03-15 10:59 | Outpatient (CLI) | payer MEDICARE, OTHER, SELFPAY ==
[2018-09-28 11:39] VITALS: BMI 40.4
--- NOTE | 2024-03-15 11:03 | DI.RAD.S_ITS ---
PROCEDURE: XR LUMBAR SPINE 2-3V INDICATIONS: Sciatica, left side TECHNIQUE: 3 views of the lumbar spine were acquired. COMPARISON: None. FINDINGS: Bones: 5 [id number] vertebrae are present. There is multilevel trace retrolisthesis as well as trace anterolisthesis of L4 on L5. Moderate to severe disc and foraminal narrowing are present at L5-S1 with scattered areas of moderate disc and foraminal narrowing throughout the visualized lumbar spine. Multilevel anterior osteophytes are present most prominently bridging at T12-L1, L1-L2. Moderate to severe bilateral partially visualized degenerative hip joint space narrowing. No vertebral body compression fractures. No suspicious bony lesions. Soft tissues: Overlying bowel gas pattern is normal. No suspicious soft tissue calcifications. IMPRESSION: Degenerative changes most severe at L5-S1. Dictated by: Ethel Kay M.D. on 03/15/2024 at 14:14 Approved by: Ethel Kay M.D. on 03/15/2024 at 14:15
== END ==
PROVIDERS: PCP Family Medicine; Referring Provider Family Medicine; Visit Provider Family Medicine
DX: M47.817 Spondylosis without myelopathy or radiculopathy, lumbosacral region (principal); M54.32 Sciatica, left side
CPT/HCPCS: 72100

== ENCOUNTER → 2024-07-19 12:30 | Outpatient (CLI) | payer MEDICARE, OTHER, SELFPAY ==
[2018-09-28 11:39] VITALS: BMI 40.4
--- NOTE | 2024-07-19 12:33 | EKG_ITS ---
[facility] [address] [address] Test Date: 2024-07-19 Pat Name: Idalia Cannon Department: [facility] Room: Gender: Female Transfer Table Operator: SAVANNA : 1940 Requested By: Order Number: [id number] Reading MD: Luis Marie MD Measurements Intervals [place] Rate: 65 P: 34 LA: 126 QRS: -3 QRSD: 128 T: -7 QT: 438 QTc: 455 Interpretive Statements Normal sinus rhythm Right bundle branch block (new) Possible Lateral infarct , age undetermined Electronically Signed On 07-19-2024 15:09:06 PST by Luis Marie MD
[2024-07-19 13:32] LABS: Add Manual Diff / Slide Review NO; Basophils Absolute Auto 100 /uL (0-100); Basophils Percent Auto 0.7 % (0-2); Eosinophils Absolute Auto 700 /uL (0-450); Eosinophils Percent Auto 9.3 % (2-4); Hemoglobin 13.3 g/dL (12.0-16.0); Lymphocytes Absolute Auto 1500 /uL (1100-4500); Lymphocytes Percent Auto 19.9 % (25-40); Mean Corpuscular HGB Conc 32.5 % (30-36); Mean Corpuscular Volume 95.4 fL (80-100); Monocytes Absolute Auto 700 /uL (0-900); Monocytes Percent Auto 9.1 % (3-14); Neutrophils Absolute Auto 4700 /uL (1500-7000); Platelet Count 256 X10^3/uL (150-400); Red Cell Distribution Width 14.3 % (11.6-14.8); White Blood Cell Count 7.7 X10^3/uL (4.5-11.0)
[2024-07-19 13:36] LABS: Hemoglobin A1C% w Est Avg Glu 5.4 % (4.0-6.0)
[2024-07-19 14:10] LABS: BUN Creatinine Ratio 18.8 (6-22); Blood Urea Nitrogen 16 mg/dL (7-17); Calcium 9.4 mg/dL (8.4-10.2); Carbon Dioxide 25 mmol/L (22-32); Chloride 108 mmol/L (98-107); Estimated Glomerular Filt Rate > 60 mL/min (>60); Glucose 98 mg/dL (80-110); HEMOLYSIS < 15 (0-50); Potassium 3.9 mmol/L (3.4-5.1); Sodium 139 mmol/L (137-145)
== END ==
PROVIDERS: PCP Family Medicine; Referring Provider Orthopaedic Surgery; Visit Provider Orthopaedic Surgery
DX: Z01.818 Encounter for other preprocedural examination (principal); R73.9 Hyperglycemia, unspecified; Z01.812 Encounter for preprocedural laboratory examination; N39.0 Urinary tract infection, site not specified
CPT/HCPCS: 36415; 80048; 83036; 85025; 93005

== ENCOUNTER → 2024-10-13 14:34 | Outpatient (CLI) | payer MEDICARE, OTHER, SELFPAY ==
[2018-09-28 11:39] VITALS: BMI 40.4
--- NOTE | 2024-10-13 15:36 | EKG_ITS ---
[place] [id number] [place] [id number] Test Date: 2024-10-13 Pat Name: Idalia Cannon Department: [facility] Room: Gender: Female It Director: SAVANNA : 1940 Requested By: Order Number: [id number] Reading MD: Abilio Luciano Measurements Intervals [place] Rate: 76 P: 42 TN: 122 QRS: 11 QRSD: 128 T: 2 QT: 414 QTc: 465 Interpretive Statements Sinus rhythm with premature supraventricular complexes Right bundle branch block T wave abnormality, consider lateral ischemia Electronically Signed On 10-13-2024 20:04:57 PST by Abilio Luciano
[2024-10-13 15:38] LABS: Add Manual Diff / Slide Review NO; Basophils Absolute Auto 100 /uL (0-100); Basophils Percent Auto 0.9 % (0-2); Eosinophils Absolute Auto 300 /uL (0-450); Eosinophils Percent Auto 3.8 % (2-4); Hematocrit 37.3 % (36-46); Hemoglobin 12.5 g/dL (12.0-16.0); Lymphocytes Absolute Auto 1600 /uL (1100-4500); Lymphocytes Percent Auto 22.7 % (25-40); Mean Corpuscular HGB Conc 33.4 % (30-36); Mean Corpuscular Hemoglobin 31.6 PG (26-34); Mean Corpuscular Volume 94.7 fL (80-100); Monocytes Absolute Auto 800 /uL (0-900); Monocytes Percent Auto 11.2 % (3-14); Neutrophils Absolute Auto 4400 /uL (1500-7000); Neutrophils Percent Auto 61.4 % (50-75); Platelet Count 258 X10^3/uL (150-400); Red Blood Cell Count 3.94 X10^6/uL (4.0-5.2); Red Cell Distribution Width 14.7 % (11.6-14.8); White Blood Cell Count 7.2 X10^3/uL (4.5-11.0)
[2024-10-13 15:47] LABS: Appearance Urine UA SL CLOUDY; Bilirubin Urine UA NEGATIVE (NEGATIVE); Color Urine UA YELLOW; Glucose Urine UA NEGATIVE (Negative); Ketones Urine UA NEGATIVE (NEGATIVE); Leukocyte Esterase Urine UA NEGATIVE (NEGATIVE); Nitrite Urine UA NEGATIVE (Negative); Occult Blood Urine UA NEGATIVE (Negative); Protein Urine UA NEGATIVE (Negative); Specific Gravity Urine UA 1.025 (1.000-1.035); Urobilinogen Urine UA 0.2 E.U./dL (0.2)
[2024-10-13 15:49] LABS: pH Urine UA 5.5 (4.5-8.0)
[2024-10-13 15:50] LABS: Alanine Aminotransferase 17 IU/L (<35); Albumin Globulin Ratio 1.4 (1.0-2.8); Alkaline Phosphatase 69 U/L (38-126); Aspartate Aminotransferase 29 IU/L (14-36); BUN Creatinine Ratio 28.6 (6-22); Bilirubin Total 0.4 mg/dL (0.2-1.3); Blood Urea Nitrogen 24 mg/dL (7-17); Calcium 9.3 mg/dL (8.4-10.2); Carbon Dioxide 23 mmol/L (22-32); Chloride 109 mmol/L (98-107); Cholesterol 121 mg/dL (140-199); Estimated Glomerular Filt Rate > 60 mL/min (>60); Globulin 2.8 g/dL (1.7-4.1); Glucose 85 mg/dL (80-110); HDL Cholesterol 47 mg/dL (40-60); HEMOLYSIS < 15 (0-50); LDL Cholesterol Calculated 51 mg/dL (<100); Sodium 138 mmol/L (137-145); Total Protein 6.8 g/dL (6.3-8.2); Triglycerides 117 mg/dL (35-150)
[2024-10-13 15:57] LABS: Hemoglobin A1C% w Est Avg Glu 5.4 % (4.0-6.0)
[2024-10-13 16:05] LABS: Bacteria Urine Occasional (0-1); Culture Indicated Urine Specimen Cultured; RBC Urine None Seen (0-5/HPF); Squamous Epithelial Cell Urine 1-5 /HPF (0-5/HPF); Urine Volume 10mL (spun); WBC Urine 5-10/HPF (0-5/HPF)
[2024-10-13 16:23] LABS: Thyroid Stimulating Hormone 1.72 uIU/mL (0.47-4.68)
[2024-10-13 16:33] LABS: Vitamin D 25 Hydroxy (D3) 46.3 ng/mL (30.0-100.0)
== END ==
PROVIDERS: Orthopaedic Surgery; PCP Family Medicine; Referring Provider Family Medicine; Visit Provider Family Medicine
DX: Z01.818 Encounter for other preprocedural examination (principal); E79.0 Hyperuricemia without signs of inflammatory arthritis and tophaceous disease; E55.9 Vitamin D deficiency, unspecified; Z13.0 Encounter for screening for diseases of the blood and blood-forming organs and certain disorders involving the immune mechanism; Z13.228 Encounter for screening for other metabolic disorders; Z13.220 Encounter for screening for lipoid disorders; Z13.29 Encounter for screening for other suspected endocrine disorder; Z01.812 Encounter for preprocedural laboratory examination; R73.9 Hyperglycemia, unspecified; R94.31 Abnormal electrocardiogram [ECG] [EKG]; N39.0 Urinary tract infection, site not specified
CPT/HCPCS: 36415; 80053; 80061; 81001; 82306; 83036; 84443; 84550; 85025; 87077; 87086; 87147; 93005

== ENCOUNTER 2024-10-25 11:55 | Day surgery (SDC) | payer MEDICARE, OTHER, SELFPAY ==
[2018-09-28 11:39] VITALS: BMI 40.4
[2024-10-12 12:41] VITALS: BMI 36.6
[2024-10-25] VITALS (13 sets, daily range): BP systolic 114–146; BP diastolic 48–77; PULSE 68–86; RESP 12–25; TEMP 36.1–37.2; O2SAT 91–100; BMI 36.6
--- NOTE | 2024-10-25 | DI.RAD.S_ITS ---
PROCEDURE: XR PELVIS 1-2V INDICATIONS: Left total hip athroplasty TECHNIQUE: Intra-operative view of the pelvis and hip acquired. COMPARISON: None. FINDINGS: Bones: Intraoperative devices prior to placement of arthroplasty prostheses are in expected positions. No fractures or suspicious bony lesions. Soft tissues: Overlying surgical retractors are present, along with other intraoperative changes. IMPRESSION: Intraoperative image of pelvis shows left total hip arthroplasty in progress. Dictated by: Niels Wadsworth M.D. on 10/25/2024 at 16:29 Approved by: Niels Wadsworth M.D. on 10/25/2024 at 16:30
--- NOTE | 2024-10-25 06:00 | DI.RAD.S_ITS ---
PROCEDURE: XR HIP W PEL IF DONE LT 2V INDICATIONS: neha TECHNIQUE: AP pelvis and lateral view of the hip acquired. COMPARISON: [facility], [place], XR HIP W PEL IF DONE LT 2V, 07/10/2023, 12:28. FINDINGS: Bones: Patient is status post left hip arthroplasty, with hardware components in expected positions. The hip joint appears congruent. The visualized bony structures appear intact. Soft tissues: Overlying postoperative changes are noted. No suspicious soft tissue densities. IMPRESSION: Expected post-operative appearance of a hip arthroplasty. Dictated by: Ethel Kay M.D. on 10/26/2024 at 12:46 Approved by: Ethel Kay M.D. on 10/26/2024 at 12:46
[2024-10-25] MEDS: CELECOXIB 200 MG CAPSULE PO (12:55)
[2024-10-25] MEDS: LACTATED RINGERS 1,000 ML 42 ML IV ×2 (12:55→16:05)
[2024-10-25] MEDS: VANCOMYCIN 1,000 MG in SODIUM CHLORIDE 0.9% 250 ML 250 MG IV (12:56)
--- NOTE | 2024-10-25 13:21 | PM.PREOP ---
Pre-operative Note Interval Note History & Physical reviewed/Exam performed by Physician: Yes Changes to H&P: No
[2024-10-25] MEDS: TRANEXAMIC ACID 1,000 MG VIAL 2000 MG INJ ×2 (14:02→15:58)
[2024-10-25] MEDS: CEFAZOLIN 2 GM/100 ML PREMIX 100 ML IV ×2 (14:05→21:19)
--- NOTE | 2024-10-25 14:36 | SUR.OPER ---
Lateral on padded OR bed. Gel axillary roll. Arms secured on padded armboard with pillow supporting top arm. Padded hip positioner braces x4 - anterior and posterior chest and pelvis. Additional gel pad used anterior pelvis. Gel pad under bottom leg from knee to foot and secured with tape over sheet.
[2024-10-25] MEDS: BUPIVACAINE 0.25% (PF) 60 ML, EPINEPHrine 0.3 MG INJ (14:40)
[2024-10-25] MEDS: BUPIVACAINE LIPOSOME 266 MG/20 ML VIAL INJ (14:41)
[2024-10-25] MEDS: SODIUM CHLORIDE IRRIG SOLUTION 250 ML, EPINEPHrine 1 MG IRR (14:45)
--- NOTE | 2024-10-25 16:29 | PM.OP.1 ---
Operative Date/Time/Diagnoses Date of procedure: 10/25/24 Time of procedure: 13:40 Pre-op diagnosis: Severe left hip OA Post-op diagnosis: same Procedure & Clinicians Procedure: Left total hip arthroplasty posterior approach Same procedure as scheduled: Yes Indications: The patient has had progressively worsening left hip pain with radiographic changes consistent with arthritis. Non-operative management has failed and the patient has requested total hip replacement. The risks, benefits and alternatives to surgery were discussed with the patient prior to proceeding. Risks discussed included, but were not limited to, failure to relieve pain, leg length discrepancy, dislocation, stiffness, infection, nerve damage, deep venous thrombosis, pulmonary embolism, stroke, coma, heart attack, permanent paralysis and , as well as the potential need for eventual revision of the prosthetic. Surgeon: Padmini Shirley Community Engagement Coordinator: Lexi Coates Anesthesia Type: General and Spinal Operative Notes Findings: Severe left hip OA, adequate stability, soft but adequate bone Closure Type: primary Specimen(s): none sent Prosthetic devices, grafts, tissues, transplants, or devices: Shirley and nephew R3 50 cup, neutral poly liner, 16.5 mm screw, 36 x 50 acetabular liner, Synergy size 12 cemented stem, +0 head, small distal cement restrictor, + 10 cement utilize her Estimated Blood Loss (mL): 250 Blood products transfused: none Procedure in detail: The patient was seen in the pre-operative area, where the patient identified the left hip as the operative site and this was marked with my initials. The patient received pre-operative antibiotics and was taken to the operating room and placed on the operative table in the right lateral decubitus position after satisfactory anesthesia. A multimedia artist out was performed. The left leg was prepared from the ankle to the iliac crest with ChloroPrep in the usual fashion and draped through sterile drapes. A PA was used during the procedure and was essential for intraoperative retraction and safe implantation of the components. The hip was approached through an approximately 20 cm incision centered over the greater trochanter and curving gently posteriorly as it went proximally. This was carried sharply to the fascia rosy, which was divided and retracted with a self retaining retractor. The trochanteric bursa was excised with care being taken to avoid the sciatic nerve, which was identified and protected throughout the case. The short external rotators were incised and the capsulomuscular flap was raised and tagged for later repair. The hip was dislocated, and a femoral neck osteotomy performed approximately 15 mm above the lesser trochanter. Retractors were placed around the femur. The canal was opened with a box cutting osteotome, followed by a T handled reamer and a lateralizing reamer. The canal was reamed for a Synergy stem. The canal was sequentially broached until there was good stability of the broach in the femur. Retractors were placed to expose the acetabulum. The labrum and central soft tissues were removed. Reaming was performed initially going up in 2 mm increments, then 1 mm increments until good bite was obtained with an odd sized reamer. The cup 1 mm larger than the last reamer was then inserted using the appropriate anteversion guides. It was further stabilized with a single screw. A trial neutral liner was placed. The broach was placed in the canal. A trial head and neck were then placed and the hip relocated and checked for leg length and stability. An intraoperative film confirmed the component position and no evidence of fracture. The patient was stable in the position of sleep, of squatting, and could be put through a range of motion with 45 degrees internal rotation without dislocation. At 90 degrees flexion, internal rotation to 70 ? was possible before dislocation. This was felt to be satisfactory and the appropriate components were opened, and the trials were removed. The acetabular liner was impacted into position. The final stem was then impacted into the prepared femoral canal. A brief Betadine soak was performed while trialing with head options. The hip was meticulously irrigated with normal saline. Finally the femoral head was impacted onto the stem. The acetabulum was cleared of all material and the hip relocated one final time. The capsulomuscular flap was then repaired to the greater trochanter though an awl hole using the tag sutures. The short external rotators were repaired with a nonabsorbable suture. A deep drain was placed and brought out anteriorly. The fascia rosy was closed with Vicryl. The subcutaneous layer was closed with barbed sutures and surgical glue. An Aquacel Ag dressing was applied and the patient was taken to recovery having tolerated the procedure well. Complications: none Post-operative Condition: stable Disposition: Acute Care Plan for aftercare: The patient will be maintained on a standard total hip replacement protocol with weight bearing as tolerated and posterior hip precautions. The patient will receive Aspirin and sequential compression devices for DVT prophylaxis. The patient will be discharged home when safe for the home environment.
[2024-10-25] MEDS: DOCUSATE 100 MG CAPSULE PO (21:18)
[2024-10-25] MEDS: ASPIRIN EC 81 MG TABLET PO (21:18)
[2024-10-25] MEDS: ATORVASTATIN 20 MG TABLET 10 MG PO (21:18)
--- NOTE | 2024-10-25 22:54 | PC.NURSE ---
Addendum entered by Jesenia Dobbs R.N. 10/26/24 05:41: Encouraged patient to try getting OOB; pt demured, stating that her leg still feels numb, although says that it feels tender when palpated. Educated on benefits of early mobilization; pt stated she did not feel up to it. Encouraged pt to mobilize with dayshift and reiterated use of IS to prevent infection. Pt resting comfortably, belongings/call light within reach, bed low/locked, bed alarm on, plan of care continues. Original Note: NOC: Discussed benefits of getting OOB w/FWW with pt; pt refused, citing residual numbness in LLE. CMS intact, strength 2+ (can move somewhat but not lift). Pt stated willingness to try OOB in AM. Purewick placed; pt voided 100mL by 2300, will continue to monitor. Pt resting comfortably, belongings/call light within reach, bed low/locked, bed alarm on, plan of care continues.
[2024-10-26] MEDS: LACTATED RINGERS 1,000 ML 100 ML IV (02:27)
[2024-10-26] MEDS: ACETAMINOPHEN 325 MG TABLET 650 MG PO ×2 (02:32→08:42)
[2024-10-26] MEDS: OXYCODONE IR 5 MG TABLET PO ×3 (02:32→14:19)
[2024-10-26 04:45] VITALS: BP 131/60; PULSE 75; RESP 20; TEMP 36.6; O2SAT 94
[2024-10-26] MEDS: CEFAZOLIN 2 GM/100 ML PREMIX 100 ML IV (05:00)
[2024-10-26 07:16] LABS: Hematocrit 35.7 % (36-46); Hemoglobin 11.5 g/dL (12.0-16.0)
--- NOTE | 2024-10-26 07:47 | P.DS_ITS ---
History of Present Illness History of Present Illness Date Patient Seen: 10/26/24 Time Patient Seen: 07:47 Chief complaint: OPB Narrative: The patient has had progressively worsening left hip pain with radiographic changes consistent with arthritis. Non-operative management has failed and the patient has requested total hip replacement. The risks, benefits and alternatives to surgery were discussed with the patient prior to proceeding. Risks discussed included, but were not limited to, failure to relieve pain, leg length discrepancy, dislocation, stiffness, infection, nerve damage, deep venous thrombosis, pulmonary embolism, stroke, coma, heart attack, permanent paralysis and , as well as the potential need for eventual revision of the prosthetic. Discharge Providers Provider Discharge Date: 10/26/24 Primary care physician: Gio Peraza MD Consults: 10/25/24 06:00 Consult to Anesthesiology Routine Comment: Consulting Provider: Anesthesiologist Reason for consultation: Regional block for post operative pain control 10/25/24 17:38 Consult to Discharge Planning Routine Comment: Consult to Occupational Therapy Evaluate & Treat Comment: Physician Instructions: Evaluate and treat Consult to Physical Therapy Evaluate & Treat Comment: Physician Instructions: post op ZAIDA protocol Discharge provider: Ag Valdes PA-C Summary Hospital Course Discharge Diagnosis: Severe left hip OA Hospital Course: Procedure: Left total hip arthroplasty posterior approach Same procedure as scheduled: Yes Anesthesia Type: General and Spinal Operative Notes Findings: Severe left hip OA, adequate stability, soft but adequate bone Closure Type: primary Specimen(s): none sent Prosthetic devices, grafts, tissues, transplants, or devices: Shirley and nephew R3 50 cup, neutral poly liner, 16.5 mm screw, 36 x 50 acetabular liner, Synergy size 12 cemented stem, +0 head, small distal cement restrictor, + 10 cement utilize her Estimated Blood Loss (mL): 250 Blood products transfused: none Status at Discharge Cognitive/behavioral status at discharge: oriented Functional status at discharge: uses cane/walker Overall status at discharge: patient is back to baseline Time Spent with Patient Time spent: Less than 30 minutes Exam Vital Signs (past 8 hours): - 10/26/24 04:45 Temperature 97.8 F Pulse Rate 75 Respiratory Rate 20 Blood Pressure 131/60 Pulse Oximetry 94 Oxygen Delivery Method Room Air Oxygen Flow Rate 0 Narrative Exam Narrative: Patient found resting comfortably in bed. Patient's pain is controlled with oral medication. ?Pain is localized to surgical site. ?Patient declines any new numbness or tingling at the surgical extremity. ?Patient denies any shortness of breath, dizziness, light-headedness, nausea, vomiting, fever or chills. 5/5 strength in hip flexors, quadriceps, hamstrings, DF, PF, EHL bilaterally. Sensation to light touch intact throughout BLE. Calves soft, compressible, nontender. Dressing placed intraoperatively CDI. 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 ? Posterior Hip Pre-cautions. Ambulate and weight bear as tolerated with assistive devices. ? Aspirin 81 mg twice a day for 6 weeks for DVT prevention. ? Baseline pain relief with acetaminophen 500mg every 4 hours as needed and Celebrex 200 mg daily. ?Patient has been prescribed oxycodone 5 mg every 4 ?hours as needed for breakthrough pain. ?Prescribed Zofran 4 mg Q 8 hours prn for postoperative nausea and vomiting. Initiate physical therapy in the next 5-10 days. ? Keep dressing clean and dry. Keep dressing on until first office visit. If dressing becomes dirty or disrupted, replace with appropriate sized dressing. Follow up in clinic in 2 weeks for wound check. Contact clinic if there are any questions or concerns. Discharge Plan Discharge Plan Patient Disposition: Home Provider Discharge Comment: DC pending PT approval Discharge orders & Medications Discharge Orders: Discharge (Order); Ordered 10/26/24 Ordered By: Ag Valdes Prescriptions: New ondansetron 4 mg Tablet,Disintegrating 4 mg PO Q8HR Qty: 10 1RF oxycodone 5 mg Tablet 5 mg PO Q4H PRN (Reason: Pain, Moderate (4-6)) Qty: 40 0RF Continued simvastatin 20 MG tablet 20 mg PO BEDTIME Qty: 0 multivitamin Tablet 1 tab PO DAILY celecoxib [Celebrex] 200 mg Capsule 200 mg PO DAILY acetaminophen 500 mg Tablet 1,000 mg PO TID allopurinol 300 mg Tablet 300 mg PO DAILY Changed aspirin 81 mg Capsule 81 mg PO BID Qty: 90 0RF Discontinued oxycodone 5 mg tablet 5 mg PO Q3HR PRN (Reason: Pain) Follow up/Referrals: Gio Peraza MD [Primary Care Provider] - Padmini Shirley MD [Physician] - 11/04/24 1:00 pm (Follow up w/ JESSY Hernandez, at [facility] office in [place].) Diet/Activity/Treatments Diet: Diet as Tolerated Activity: Weightbearing as tolerated. Posterior hip precautions. Cold/Heat Therapy: Ice to hip as needed for pain. Skin/Wound/Dressing Care Report to your healthcare provider any signs of infection, such as:: chills, fever, night sweats, unusual drainage and unusual redness Dressing: May shower. Leave Aquacel dressing in place until follow up in office. No bathing or otherwise soaking incision. Call the office if the dressing becomes saturated inside. Visit Report/Discharge Packet Instructions: DI for Hip Replacement Stand Alone Forms: Patient Portal/API, Surgery Discharge Discharge Data Primary Care Provider: Gio Peraza Attending Provider: Padmini Shirley Quality VTE Deep Vein Thrombosis/Pulmonary Embolism Present on Admission: No
[2024-10-26 08:00] VITALS: BP 135/58; PULSE 73; RESP 17; TEMP 36.3; O2SAT 96
[2024-10-26] MEDS: ASPIRIN EC 81 MG TABLET PO (08:43)
[2024-10-26] MEDS: CELECOXIB 200 MG CAPSULE PO (08:43)
[2024-10-26] MEDS: MULTIVITAMIN 1 TABLET 1 TAB PO (08:44)
[2024-10-26] MEDS: DOCUSATE 100 MG CAPSULE PO (08:45)
--- NOTE | 2024-10-26 09:55 | PT.IIE ---
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) Medical History (Last Updated 10/12/24 @ 13:32 by Arline Shrestha RN) Easy bruisability Gout History of COVID-19 (~2020) HTN (hypertension) Hyperlipidemia Osteoarthritis Physical Therapy Inpatient Evaluation/Re-Eval M1 PT/OT-IP Prior Functional Status Start: 10/26/24 13:09 Freq: NEEDED Status: Active Protocol: Document 10/26/24 09:55 AB (Rec: 10/26/24 13:21 AB [id number]) Medical Review Prior Functional Status Medical History Reviewed Yes Communication able to make needs known Mobility and Gait pt stated that she was modified independent with all mobilities and ambulation using a FWW Social History Household Members spouse Living Arrangements House Number of Floors (Floors) One Floor Number of Stairs To Enter/Railing? 2 platform steps to enter thouse Home Environment Standard Height Toilet,Walk in Shower Home Equipment Front Wheel Walker,Four Wheel Walker,Raised Toilet Seat Without Armrests,Tub Transfer Bench,Hand Held Shower,Grab Bars In Shower Additional Social History Comment pt stated that spouse will be able to assist some but she is not sure M2 PT-IP Current Condition Start: 10/26/24 13:09 Freq: NEEDED Status: Active Protocol: Document 10/26/24 09:55 AB (Rec: 10/26/24 13:21 AB [id number]) Physical Therapy Current Condition Current Condition Evaluation Date 10/26/24 Treatment Diagnosis s/p L ZAIDA posterior; difficulty in walking Onset Date 10/25/24 M3 PT-IP Subjective Start: 10/26/24 13:09 Freq: NEEDED Status: Active Protocol: Document 10/26/24 09:55 AB (Rec: 10/26/24 13:21 AB [id number]) Subjective Physical Therapy Visit Type Type Initial Evaluation Visit Start Time 09:55 Visit Stop Time 10:35 Number of ENGINEERING DEPARTMENT CHAIR Visits 0 Physical Therapy Visit Comments Patient Comments agreed to do PT Therapy Pain Assessment Pain When Pain Assessed At Rest Pain Present Pain Present Pain Reported Location left hip Intensity 4 Scale Used increases with movement Pain Management Techniques Distraction,Modification of Treatment,Re-positioning, Timing of Activity with Medications M4 PT-IP Mobility and Gait Start: 10/26/24 13:09 Freq: NEEDED Status: Active Protocol: Document 10/26/24 09:55 AB (Rec: 10/26/24 13:21 AB [id number]) PT-Bed Mobility Assessment Supine to Sit Supine to Sit Maximum Assistance PT-Transfer Assessment Sit to and From Stand Sit to and from Stand Moderate Assistance,Maximum Assistance,1 Person Assistance ,Use of Upper Extremities Equipment Transfer Assistive Device Gait Belt,Front Wheeled Walker Orthotic/Prosthetic Devices or Brace: No Transfers Transfer Destination Chair Transfer Ability Level of Assist Moderate Assistance,1 Person Assistance,Use of Upper Extremities Comments Mobility Comments pt in bed and agreeable to do PT. obtained PLOF and home setup. post-op folder provided . educated pt on L hip posterior precautions. pt has difficulty recalling precautions. pt completed supine to sit max A and max cues. able to sit on EOB CGA. completed sit to stand mod A and max cues for precautions. pt ambulated towards the chair using FWW ~ 12 ft mod A and max cues. cued for L quads activation. max A for controlled descent to chair. positioned pt on the chair. informed pt regarding caregiver training this afternoon and stair climbing training. pt stated that she will call her spouse. Left pt with OT. Gait Assessment Gait Gait Assistance Required: Moderate Assistance,1 Person Assist Distance (Feet) 12 Able to Maintain Weight Bearing Status Yes During Gait Assistive Devices Assistive Device Gait Belt,Front Wheeled Walker Orthotic/Prosthetic Devices or Brace: No Gait Deviations General Gait Pattern Antalgic,Decreased Stride Length,Decreased Feet Clearance Factors Limiting Gait Function Factors Limiting Gait Function Decreased Activity Tolerance, Decreased Strength,Difficulty Following Directions,Limited Range of Motion,Pain,Poor Balance,Poor Safety Awareness PT-Balance Assessment Sitting Balance and Reactions Static Sitting Balance Ability Good Dynamic Sitting Balance Ability Fair Standing Balance and Reactions Static Standing Balance Ability Poor Dynamic Standing Balance Ability Poor Device Used FWW M5 PT-IP Objective Assessments Start: 10/26/24 13:09 Freq: NEEDED Status: Active Protocol: Document 10/26/24 09:55 AB (Rec: 10/26/24 13:21 AB [id number]) Orientation Orientation/Cognition Level of Alertness Alert Orientation Name,Place,Situation Language Function Ability Hard of Hearing Safety Awareness Decreased Safety Awareness Memory Description Short Term Impaired Strength Lower Extremity Strength Assessment Left Impaired Hip 3-/5 Knee 3+/5 Muscle Tone Muscle Tone WNL Yes M6 PT-IP Treatment Start: 10/26/24 13:09 Freq: NEEDED Status: Active Protocol: Document 10/26/24 09:55 AB (Rec: 10/26/24 13:21 AB [id number]) Physical Therapy Treatment Education Education Provided Precautions,Weight Bearing Status,Post-Op Packet,Safety M7 PT-IP Assessment and Plan Start: 10/26/24 13:09 Freq: NEEDED Status: Active Protocol: Document 10/26/24 09:55 AB (Rec: 10/26/24 13:21 [id number]) PT Summary Assessment and Plan Potential Rehabilitation Potential Fair Status of Condition at Evaluation Evolving Summary Impairments Pain,ROM,Strength,Balance, Coordination,Sensation,Tone, Cognition,Bed Mobility, Transfers,Gait,Activity Tolerance Assessment Summary pt is an 84 y/o F s/p L ZAIDA posterior approach POD 1. pt has L hip posterior precautions and is WBAT. pt requiring max A for bed mobilty and mod A for transfers and ambulation using FWW and max cues with all tasks for hip precautions. will conduct caregiver training this afternoon as well as stair climbing training. will continue to assess for safe d/c plan. Goals Bed Mobility Goal Standby Assistance Transfer Goal Standby Assistance,Front Wheeled Walker Gait Goal Standby Assistance,Front Wheel Walker Gait Distance 100 Other Goals improve bed mobiltiy , transfers, ambulation using fWW 150 mod i up/down 2 platform steps using FWW CGA Days to Meet Goals 5 Frequency of Treatment Frequency Of Treatment Twice a Day Treatment Plan Physical Therapy Treatment Plan Bed Mobility Training,Transfer Training,Gait Training, Therapeutic Exercise,Balance Retraining,Post Op Education, Discharge Planning,Hot or Cold Pack,Neuromuscular Re-ed, Coordination Retraining,Manual Therapy Precautions Posterior Hip Precautions No Hip Flexion > 90 degrees,No Hip Internal Rotation,No Hip Adduction Weight Bearing Status Weight Bearing Status Weight Bear as Tolerated Allowed Weight Bearing Amount (enter % LLE WBAT or #) (%) Recommendations To Nursing Amount of Assist Needed 1 Person Assist Discharge Recommendations PT Discharge Recommendations Home with / Assist Available,Home Health Transportation Needs at Discharge Private Vehicle,Wheelchair/ Cabulance
--- NOTE | 2024-10-26 10:38 | OT.IP.EVAL ---
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 Mobility and Gait pt stated that she was modified independent with all mobilities and ambulation using a FWW Activities of Daily Living and IADL's Pt states that she is IND in all ADLs except LB dressing and her has been assisting her with all LB dressing for some time d/t pain in the L hip. Social History Household Members spouse Living Arrangements House Number of Floors (Floors) One Floor Number of Stairs To Enter/Railing? 2 platform steps to enter thouse Home Environment Standard Height Toilet,Walk in Shower Home Equipment Front Wheel Walker,Four Wheel Walker,Raised Toilet Seat Without Armrests,Tub Transfer Bench,Hand Held Shower,Grab Bars In Shower Additional Social History Comment pt stated that spouse will be able to assist some but she is not sure M2 OT-IP Current Condition Start: 10/26/24 16:33 Freq: Status: Active Protocol: Document 10/26/24 16:33 CGR (Rec: 10/26/24 16:49 CGR [id number]) Occupational Therapy Current Condition Current Condition Evaluation Date 10/26/24 Treatment Diagnosis L ZAIDA posterior appropach WBAT Diagnosis Onset Date 2/11/25 M3 OT- IP Subjective and Pain Start: 10/26/24 16:33 Freq: Status: Active Protocol: Document 10/26/24 16:33 CGR (Rec: 10/26/24 16:49 CGR [id number]) OT- Subjective Occupational Therapy Visit Type Type Initial Evaluation Visit Start Time 10:00 Visit Stop Time 10:38 Notes Parital co-treat with P.T. M4 OT- IP ADL's Start: 10/26/24 16:33 Freq: Status: Active Protocol: Document 10/26/24 16:33 CGR (Rec: 10/26/24 16:49 CGR [id number]) OT [id number] Comments OT Self-Feeding Comments not meal time OT ADL-Grooming Comments OT Grooming Comments pt declined to perform OT ADL-Oral Care Comments Oral Care Comments pt declined to perform OT ADL-Dressing Comments OT Dressing Comments Pt educated on LB dressing restrictions d/t posterior hip precautions and educated that there are DME available to assist with LB dressing but pt states that she will just continue to get assistance from her . OT ADL-Toileting Comments OT Toileting Comments pt declines need OT ADL-Bathing Comments OT Bathing Comments not peformed M5 OT- IP IADL's Start: 10/26/24 16:33 Freq: Status: Active Protocol: Document 10/26/24 16:33 CGR (Rec: 10/26/24 16:49 CGR [id number]) OT-Instrumental Activities of Daily Living Deficits IADL Deficits Identified No Deficits Home Safety Awareness Awareness of Need for Assistance at Home Good Awareness Ability to Problem Solve Emergency Able to Problem Solve Situations Medication Management Medication Management No Deficits Identified Money Management Money Management No Deficits Identified Meal Preparation Meal Preparation Caregiver Provides Assist Tripe Scraper Tripe Scraper Caregiver Provides Assist Driving Driving Comments Pt's spouse drives M6 OT- IP Functional Cognition Start: 10/26/24 16:33 Freq: Status: Active Protocol: Document 10/26/24 16:33 CGR (Rec: 10/26/24 16:49 CGR [id number]) Cognitive Factors Limiting Selfcare Function Cognitive Ability Level of Alertness Alert Patient Orientation Name,Age,Birthday,Month,Date, Year,Day of Week,Place, Situation Attention Span Ability Capable of Focused Attention, Capable of Sustained Attention Ability to Follow Commands Able to Follow One Step Commands with Increased Time, Able to Follow One Step Commands with Repetition OT- Vision and Hearing OT- Hearing Assessment OT- Hearing Assessment WFL OT- Vision Assessment Visual Acuity WFL Visual Attentiveness WFL Occular Pursuits WFL Visual Convergence WFL M7 OT- IP Mobility and Balance Start: 10/26/24 16:33 Freq: Status: Active Protocol: Document 10/26/24 16:33 CGR (Rec: 10/26/24 16:49 CGR [id number]) OT- Bed Mobility Assessment Supine to Sit Supine to Sit Assist Maximum Assistance,1 Person Assistance Scooting Scooting to Edge of Bed Standby Assistance,1 Person Assistance OT-Transfer Assessment Sit to and From Stand Sit to and from Stand Moderate Assistance,Maximum Assistance,1 Person Assistance Transfers Transfer Ability Moderate Assistance,1 Person Assistance Technique Transfer Destination Bed,Car Transfer Technique Stand Step Pivot Devices Transfer Assistive Devices Gait Belt,Front Wheeled Walker Comments Mobility Comments Pt stood from bed and ambulated around the bed to the chair on the other side. Pt declined going to the bathroom or performing ADLs standing at sink. OT- Balance Assessment Sitting Balance and Reactions Static Sitting Balance Ability Good Dynamic Sitting Balance Ability Good M8 OT- IP Objective Assessments Start: 10/26/24 16:33 Freq: Status: Active Protocol: Document 10/26/24 16:33 CGR (Rec: 10/26/24 16:49 CGR [id number]) OT Gross Range of Motion Upper Extremity Range of Motion Assessment Bilaterally Impaired ROM Impairments B shlds 0-90 d/t arthritic changes OT Strength Upper Extremity Strength Assessment Within Functional Limits Comments Strength Comments grossly 5-/5 OT- Coordination Assessment Upper Extremity Finger to Nose Test Within Functional Limits Finger Tapping Test Within Functional Limits OT Sensation Assessment Edema Edema Absent M9 OT- IP Assessment and Plan Start: 10/26/24 16:33 Freq: Status: Active Protocol: Document 10/26/24 16:33 CGR (Rec: 10/26/24 16:49 CGR [id number]) OT Summary Assessment and Plan Potential Rehabilitation Potential Excellent Analytic Complexity at Evaluation Moderate Summary OT Impairments Pain,Strength,Balance, Functional Mobility,Grooming, Dressing,Toileting,Bathing, Toilet Transfers,Shower Transfers,Activity Tolerance Progress Towards Goals Progressing Toward Goals Assessment Summary Pt presents as a L ZAIDA posterior approach. Pt needing mod to max assist with sit to stand and mod a for ambulation to chair. Pt is likely to progress quickly as this is her first time up. Pt planned for caregiver training in PM as MD has discharge orders in. At this time SNF would be recommended for pt but she is likely to progress quickly and be appropriate for discharge home with husbands support. Goals Grooming Goal Independent Dressing Goal Independent,Foundry Melt Supervisor,Sock Aid Toileting Goal Independent Bathing Goal Independent Toilet Transfer Goal Independent Shower Transfer Goal Independent Frequency of Treatment Other frequency 5x per week Treatment Plan OT Treatment Plan ADL Training,Functional Mobility,Patient/Family Education,Discharge Planning Other Treatment Recommendations and Next up to bathroom, aDLs standing Treatment Focus Discharge Recommendations OT Discharge Recommendations Home with Assistance,SNF Rehab Home Equipment Needs 2ww, LB dressing equipment Transportation Needs at Discharge Private Vehicle
--- NOTE | 2024-10-26 13:35 | PT.IPTN ---
Current Diagnoses Unilateral primary osteoarthritis, left hip (10/25/24) Surgery Performed Operation Date: 10/25/24 13:45 Actual Procedures p Total Hip Arthroplasty(Left) - Padmini Shirley MD Physical Therapy Treatment Note M2 PT-IP Current Condition Start: 10/26/24 13:09 Freq: NEEDED Status: Active Protocol: Document 10/26/24 09:55 AB (Rec: 10/26/24 13:21 AB [id number]) Physical Therapy Current Condition Current Condition Evaluation Date 10/26/24 Treatment Diagnosis s/p L ZADIA posterior; difficulty in walking Onset Date 10/25/24 M3 PT-IP Subjective Start: 10/26/24 13:09 Freq: NEEDED Status: Active Protocol: Document 10/26/24 13:35 AB (Rec: 10/26/24 14:42 AB [id number]) Subjective Physical Therapy Visit Type Type Treatment Note Visit Start Time 13:35 Visit Stop Time 14:30 Number of DIE BARBER Visits 0 Therapy Pain Assessment Pain When Pain Assessed At Rest Pain Present Pain Present Pain Reported Location left hip Intensity 5 Scale Used Numeric (0 - 10) Pain Management Techniques Apply Cold,Distraction, Modification of Treatment,Re- positioning,Timing of Activity with Medications M4 PT-IP Mobility and Gait Start: 10/26/24 13:09 Freq: NEEDED Status: Active Protocol: Document 10/26/24 13:35 AB (Rec: 10/26/24 14:42 AB [id number]) PT-Bed Mobility Assessment Supine to Sit Supine to Sit Maximum Assistance Sit to Supine Sit to Supine Maximum Assistance,1 Person Assistance,2 Person Assistance PT-Transfer Assessment Sit to and From Stand Sit to and from Stand Moderate Assistance,1 Person Assistance,Use of Upper Extremities Equipment Transfer Assistive Device Gait Belt,Front Wheeled Walker Orthotic/Prosthetic Devices or Brace: No Transfers Transfer Destination Bed Transfer Technique ambulated Transfer Ability Level of Assist Moderate Assistance,1 Person Assistance,Use of Upper Extremities Comments Mobility Comments pt sitting on chair and spouse in room. pt unable to recall her precautions. educated pt and spouse regarding posterior hip precautions again. noticed spouse has a hurrycane caregiver training conducted. educated spouse on how to use safety belt and how to assist pt. spouse was able to put safety belt on pt and assisted pt with sit to stand mod A. spouse let go of pt upon standing and pt LOB. PT assisted pt to regain balance. instructed spouse hold on to pt for safety and not let go of the belt. spouse ambulated pt to EOB ~ 12 ft using fWW mod A. asked pt if she has decided to just use the recliner at this time since she is needing max A and might be too much for spouse. pt insisted that spouse will be able to assist. completed sit to supine max A and max cues. PT needed to assist spouse to be able to assist pt elevate LE up in bed. pt completed supiine to sit with spouse assisting max A. stair climbing training: educated pt and spouse on how to do stairs. pt ambulated from EOB to platform step using FWW mod A and cues. pt completed up/down step using fWW mod A and cues. spouse was able to assist pt. pt ambulated back to room using FWW ~ 25 ft mod A (+) LOB again. pt easily distracted and lets go of FWW to reach for bed pad to straighten. educated pt regarding safety and redirected to task at hand . pt ambulated to the chair. positioned pt on the chair. call light and table placed within reach. informed pt and spouse regarding SNF recommendation of if going home, pt will need 24/7 assist and will need additional assistance, w/c , bedside commode and use of town marshal to sleep on. pt wants to go home but spouse is not sure. informed sheryl and onsite case manager. Gait Assessment Gait Gait Assistance Required: Moderate Assistance Distance (Feet) 25 Able to Maintain Weight Bearing Status Yes During Gait Assistive Devices Assistive Device Gait Belt,Front Wheeled Walker Orthotic/Prosthetic Devices or Brace: No Gait Deviations General Gait Pattern Antalgic,Decreased Stride Length,Decreased Feet Clearance Factors Limiting Gait Function Factors Limiting Gait Function Decreased Activity Tolerance, Decreased Strength,Difficulty Following Directions,Limited Range of Motion,Pain,Poor Balance,Poor Safety Awareness M5 PT-IP Objective Assessments Start: 10/26/24 13:09 Freq: NEEDED Status: Active Protocol: Document 10/26/24 09:55 AB (Rec: 10/26/24 13:21 AB [id number]) Orientation Orientation/Cognition Level of Alertness Alert Orientation Name,Place,Situation Language Function Ability Hard of Hearing Safety Awareness Decreased Safety Awareness Memory Description Short Term Impaired Strength Lower Extremity Strength Assessment Left Impaired Hip 3-/5 Knee 3+/5 Muscle Tone Muscle Tone WNL Yes M6 PT-IP Treatment Start: 10/26/24 13:09 Freq: NEEDED Status: Active Protocol: Document 10/26/24 13:35 AB (Rec: 10/26/24 14:42 AB [id number]) Physical Therapy Treatment Education Education Provided Precautions,Safety M7 PT-IP Assessment and Plan Start: 10/26/24 13:09 Freq: NEEDED Status: Active Protocol: Document 10/26/24 13:35 AB (Rec: 10/26/24 14:42 AB [id number]) PT Summary Assessment and Plan Potential Rehabilitation Potential Fair Summary Impairments Pain,ROM,Strength,Balance, Coordination,Sensation,Tone, Cognition,Bed Mobility, Transfers,Gait,Activity Tolerance Progress Towards Goals Slow Progress - Other Assessment Summary caregiver training conducted. pt's spouse uses a hurrycane for ambulation and is also limited ability to assist pt. informed pt and spouse regarding SNF rehab but has not decided on anything at this time. pt will need more assistance at home in addition to what spouse can provide. will continue to assess. Goals Bed Mobility Goal Standby Assistance Transfer Goal Standby Assistance,Front Wheeled Walker Gait Goal Standby Assistance,Front Wheel Walker Gait Distance 100 Other Goals improve bed mobiltiy , transfers, ambulation using fWW 150 mod i up/down 2 platform steps using FWW CGA Days to Meet Goals 5 Frequency of Treatment Frequency Of Treatment Twice a Day Treatment Plan Physical Therapy Treatment Plan Bed Mobility Training,Transfer Training,Gait Training, Therapeutic Exercise,Balance Retraining,Post Op Education, Discharge Planning,Hot or Cold Pack,Neuromuscular Re-ed, Coordination Retraining,Manual Therapy Precautions Posterior Hip Precautions No Hip Flexion > 90 degrees,No Hip Internal Rotation,No Hip Adduction Weight Bearing Status Weight Bearing Status Weight Bear as Tolerated Allowed Weight Bearing Amount (enter % LLE WBAT or #) (%) Recommendations To Nursing Amount of Assist Needed 1 Person Assist Discharge Recommendations PT Discharge Recommendations Home with 06/04 Assist Available,Home Health,SNF Rehab,Home vs SNF Transportation Needs at Discharge Private Vehicle,Wheelchair/ Cabulance
[2024-10-26] MEDS: IBUPROFEN 400 MG TABLET PO (14:19)
--- NOTE | 2024-10-26 16:00 | CM.DANOTE ---
DCP Assessment note pt is a 84yo F POD1 elective total left hip. PCP Gio Peraza Payer Medicare and for [facility] CAPTAIN ROOM SERVICE reviewed EMR. Per PT, rec home with assist vs HH vs SNF. Per PT/OT, pt can stay on main level, fatigues easily, and overall has poor endurance. FWW at home. Per PT, pt told PT there was no pre op planning appt. PT concerned about spouses ability to assist her at home. Per UR RN, no current medical criteria per her EMR review to convert pt to INPT status, see reg notes for more. CAPTAIN ROOM SERVICE entered room and introduced self and role. Pt accompanied by spouse in room. CAPTAIN ROOM SERVICE reviewed current recs, barriers to SNF placement, PP options, HH, PP CGs, and DME for home. After lengthy discussion, pt decided she wants to dc home, no HH, with her spouse and dtr to assist. dtr is working getting her a bedside commode. CAPTAIN ROOM SERVICE provided mult brochures and senior resources booklet. if after another night she still needs assistance at home, pt reports she will hire in home caregivers stating she has the financial resources to do so (we're rich it's fine). if not, she plans to attempt PP SNF rehab that she will get her primary care provider to arrange. Denies HH from this [employer] ROOM [employer]. CAPTAIN ROOM SERVICE updated RN P: dc home today with spouse and dtr support. if needed will hire in home caregivers. dtr to get bedside commode. no further CM needs at this time, will continue to follow as needed ARABELLA You Discharge Planning/Care Management CM Discharge Assessment Start: 10/26/24 15:58 Freq: Status: Active Protocol: Document 10/26/24 15:58 (Rec: 10/26/24 16:00 [id number]) Discharge Planning Assessment Assigned Clinical Assessment Manager ARABELLA Harris DPOA/Assigned Designee Name Jimmy, spouse Contact Information [phone] Advance Directives? No: Declines further information History Provided By Patient,Family Member Prior Living Arrangements House Household Members spouse Independent with ADL's Yes Is patient alert and oriented? Yes DME Already Rented / Owned Elevated Toilet Seat,FWW / Walker Discharge Plan Home Transportation Arrangement Family to provide transport. Referrals Initiated None needed Review Status In Process Please Provide Date Initial DC 10/26/24 Assessment Was Performed Next Review Type Continued Stay Review Pre-Anesthesia Assessment Start: 10/12/24 12:41 Freq: Status: Active Protocol: Document 10/12/24 12:41 CAB (Rec: 10/12/24 13:39 CAB [id number]) Pre-Anesthesia Assessment PAC Comment Phone assess 10/12/24 Preferred Name Ninoska or Idalia Patient Information Reviewed Via Phone Assessment Assessment Completed With Patient Diagnostic Results BMP/CMP,CBC,EKG Comment Labs/EKG @ [facility] 07/19/25 Primary Care Provider Gio Peraza Seen Specialist in Last 12 Months Yes Specialist Seen Orthopedist Primary Language Tunisian Preferred Language Tunisian 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 Required No Height 157.48 cm Weight 90.718 kg Body Mass Index (BMI) 36.6 Hearing Ability Normal Visual Assist Glasses Dentition Type Teeth, Natural Present,Teeth, Missing Barriers to Learning None Other Aids No Hx Anesthesia Reactions No Hx Family Anesthesia Reaction No Hx Malignant Hyperthermia No Hx Blood Transfusions No Anesthesia Review Requested Yes: Surgeon requested re: Cardiac/EKG review It Instructor No alcohol intake current alcohol intake frequency a few times a month Smoking Status Former smoker Tobacco type cigarettes how long ago did patient quit smoking Quit 1969 Substance Use Type [#R] does not use Pain Present Pain Reported Musculoskeletal Symptoms Abnormal Gait,Difficulty Walking,Joint Pain History of Falling (Recent or History of Yes ) Patient is completely paralyzed or No completely immobile Prosthesis or Orthotic Device Front Wheel Walker Mental Status Oriented to own ability Is patient on oxygen? No Does patient have SAUL/SOB No Hx Sleep Apnea No Currently Taking a Beta Caridad No Can You Climb a Flight of Stairs Without No SOB Hx Chest Pain No Hx SOB No Hx Syncope or Dizziness No Anti-Coagulant Therapy No Has a Key Bed Installer No Cardiac Testing No Hx Pacemaker/ICD No Pacemaker Rep Required? No Cardiac Clearance Received No Diet Type At Home Regular Dysphagia No Gastrointestinal Symptoms Constipation Bladder Pattern Nocturia Urinary Catheter Present No Hx Urinary Self Catheterization No Diabetes No HgbA1C 5.4 Date 07/19/24 Comment 5.4% 07/19/24 Patient No Lactating No Hx Drug Resistant Organism No Presence of External or Internal Medical Yes: Chapo knee prosthesis Devices Comment NO covid symptoms last 8 weeks Marital Status Lives With spouse Current Living Arrangements House Number of Floors (Floors) One Floor Number of Stairs To Enter/Railing? 1 step Support System Child/Children,Spouse Does the Patient Have Assistance After Yes: Daughters will assist Surgery with care at DC Patient Discharge Plan Description Return Home Comment Pt advised overnight length of stay per surgeon Feels Safe in Current Environment Yes Been Physically Hurt or Threatened By a No Person in Current Environment Do you have thoughts of harming yourself None or others? Are you currently considering suicide? No Do you have a plan to hurt yourself or No Plan others? Do You Have Any Spiritual Beliefs That No May Affect Your HC Choices? Do You Have Any Cultural Practices That No May Affect Your HC Choices? Comment Jasiel Who Can We Speak to About Patient's Care Family, friends Identifying Code for Release of Patient Declines to issue Information Health Care Proxy/Next of Kin Ron () Health Care Proxy or [phone] Emergency Contact Name Ron () Emergency Contact or [phone] Advance Directives? No: Declines further information Power of Copper Plate Printer No PAC Instructions Assistance for 24 hours post- op,Do not shave/clip surgical site,Durable medical equipment ,Medications to take/avoid, Nasal antibiotic,No ETOH/ petroleum product on skin DOS, NPO,Post-op transportation,Pre -surgical wash,Sturdy shoes/ comfortable clothes,Do not bring valuables and remove jewelry
--- NOTE | 2024-10-26 16:18 | PC.NURSE ---
LATE NOTE> AT 1605 PATIENT WHEELED OUT AFTER GOING [facility] HER DISCHARGE PAPERWORK, IV IS OUT . TAKEN TO HOSPITAL EXIT BY AMELIA
== END 2024-10-26 16:05 | disposition home or self-care (01) ==
LOC: OR 11:56 → AC 12:01
PROVIDERS: PCP Family Medicine; Referring Provider Orthopaedic Surgery; Visit Provider Orthopaedic Surgery
PROC: 0SRB0JZ Replacement of Left Hip Joint with Synthetic Substitute, Open Approach (ICD-10-PCS; CPT 27130; principal; 2024-10-25 13:45)
DX: M16.12 Unilateral primary osteoarthritis, left hip (principal); Z96.652 Presence of left artificial knee joint; Z87.891 Personal history of nicotine dependence; M54.16 Radiculopathy, lumbar region
CPT/HCPCS: 27130; 36415; 72170; 73502; 85014; 85018; 97162; 97166; 97530; C1776; C1713; J0171; J0330; J0666; J0690; J1100; J1171; J2405; J2704; J3010

== ENCOUNTER → 2024-12-07 14:13 | Outpatient (CLI) | payer MEDICARE, OTHER, SELFPAY ==
[2024-10-25 17:46] VITALS: BMI 36.6
[2024-12-07 14:54] LABS: Add Manual Diff / Slide Review NO; Basophils Absolute Auto 100 /uL (0-100); Basophils Percent Auto 1.1 % (0-2); Eosinophils Absolute Auto 400 /uL (0-450); Eosinophils Percent Auto 5.8 % (2-4); Hematocrit 39.2 % (36-46); Hemoglobin 12.8 g/dL (12.0-16.0); Lymphocytes Absolute Auto 1700 /uL (1100-4500); Lymphocytes Percent Auto 23.3 % (25-40); Mean Corpuscular HGB Conc 32.8 % (30-36); Mean Corpuscular Hemoglobin 31.5 PG (26-34); Mean Corpuscular Volume 96.1 fL (80-100); Monocytes Absolute Auto 700 /uL (0-900); Monocytes Percent Auto 9.9 % (3-14); Neutrophils Absolute Auto 4400 /uL (1500-7000); Neutrophils Percent Auto 59.9 % (50-75); Platelet Count 267 X10^3/uL (150-400); Red Blood Cell Count 4.08 X10^6/uL (4.0-5.2); White Blood Cell Count 7.3 X10^3/uL (4.5-11.0)
[2024-12-07 15:26] LABS: BUN Creatinine Ratio 16.1 (6-22); Blood Urea Nitrogen 14 mg/dL (7-17); Calcium 9.5 mg/dL (8.4-10.2); Carbon Dioxide 28 mmol/L (22-32); Chloride 102 mmol/L (98-107); Estimated Glomerular Filt Rate > 60 mL/min (>60); Glucose 100 mg/dL (80-110); HEMOLYSIS < 15 (0-50); Potassium 3.4 mmol/L (3.4-5.1); Sodium 140 mmol/L (137-145)
== END ==
PROVIDERS: PCP Family Medicine; Referring Provider Internal Medicine; Visit Provider Internal Medicine
DX: I10 Essential (primary) hypertension (principal); Z13.0 Encounter for screening for diseases of the blood and blood-forming organs and certain disorders involving the immune mechanism; Z13.228 Encounter for screening for other metabolic disorders
CPT/HCPCS: 36415; 80048; 85025

== ENCOUNTER → 2024-12-23 13:44 | Outpatient (CLI) | payer MEDICARE, OTHER, SELFPAY ==
[2024-10-25 17:46] VITALS: BMI 36.6
== END ==
PROVIDERS: PCP Family Medicine; Referring Provider Orthopaedic Surgery; Visit Provider Physician Assistant
DX: L89.323 Pressure ulcer of left buttock, stage 3 (principal)
CPT/HCPCS: 11042; 99203; 99212

== ENCOUNTER → 2024-12-30 09:42 | Outpatient (CLI) | payer MEDICARE, OTHER, SELFPAY ==
[2024-10-25 17:46] VITALS: BMI 36.6
== END ==
PROVIDERS: PCP Family Medicine; Referring Provider Family Medicine; Visit Provider Physician Assistant
DX: L89.323 Pressure ulcer of left buttock, stage 3 (principal); L89.152 Pressure ulcer of sacral region, stage 2; R21 Rash and other nonspecific skin eruption
CPT/HCPCS: 11042; 99212

== ENCOUNTER → 2025-01-05 13:35 | Outpatient (CLI) | payer MEDICARE, OTHER, SELFPAY ==
[2024-10-25 17:46] VITALS: BMI 36.6
== END ==
PROVIDERS: PCP Family Medicine; Referring Provider Family Medicine; Visit Provider Surgery
DX: L89.323 Pressure ulcer of left buttock, stage 3 (principal); R60.0 Localized edema
CPT/HCPCS: 11042; 99213

== ENCOUNTER → 2025-01-13 13:36 | Outpatient (CLI) | payer MEDICARE, OTHER, SELFPAY ==
[2024-10-25 17:46] VITALS: BMI 36.6
== END ==
LOC: WC 13:37
PROVIDERS: PCP Family Medicine; Referring Provider Family Medicine; Visit Provider Physician Assistant
DX: Z87.2 Personal history of diseases of the skin and subcutaneous tissue (principal)
CPT/HCPCS: 99212